=== PATIENT | male | born 1985 | race African-American/Black ===

== ENCOUNTER 2018-06-30 06:48 | Emergency (ER) | payer BC, MEDICAID ==
[~2018-06-30] VITALS: Ht 188 cm; Wt 86.2 kg
[~2018-06-30 06:48] MED LIST: ASPI-1169 PO; CLON0.1T14 PO; LORA-259 PO; OMEP40CA37 PO; OXYC-128 PO; PANCREAZE 10,51 EACH PO
--- NOTE | 2018-06-30 06:52 | NUR ---
PT BIBSELF C/C LOWER ABDOMINAL PAIN X 1 DAY. -N/-V/-D. PT AOX4. RESP EVEN AND UNLABORED. PT ON MONITOR IN BED 9. WILL CONTINUE TO MONITOR.
--- NOTE | 2018-06-30 06:55 | NUR ---
URINE COLLECTED AND SENT TO LAB
--- NOTE | 2018-06-30 07:20 | NUR ---
BLOOD DRAWN AND GIVEN TO LAB
[2018-06-30] MEDS ORDERED: HYDROMORPHONE 1 MG/1 ML DISP.SYRIN ONE (07:21)
[2018-06-30] MEDS ORDERED: ONDANSETRON HCL/PF 4 MG/2 ML VIAL ONE (07:21)
[2018-06-30 07:25] LABS: BASOPHILS # (AUTO) 0.1 /CMM (0.0-0.2); BASOPHILS % (AUTO) 0.6 % (0.0-2.0); EOSINOPHILS % (AUTO) 0.4 % (0.0-6.0); HEMATOCRIT 42 % (39-51); HEMOGLOBIN 14.2 g/dL (13.5-17.5); LYMPHOCYTES # (AUTO) 6.2 /CMM (0.8-4.8); MEAN CORPUSCULAR HGB CONC 34 g/dl (31.0-36.0); MEAN CORPUSCULAR VOLUME 94 fL (80-96); MONOCYTES # (AUTO) 0.9 /CMM (0.1-1.30); MONOCYTES % (AUTO) 7.4 % (2.0-12.0); NEUTROPHILS # (AUTO) 4.4 /CMM (1.8-8.9); NEUTROPHILS % (AUTO) 37.6 % (43.0-81.0); PLATELET COUNT (AUTO) 272 /CMM (150-450); RED BLOOD CELL COUNT(AUTO) 4.48 MIL/uL (4.5-6.0); WHITE BLOOD COUNT (AUTO) 11.6 K/uL (4.3-11.0)
--- NOTE | 2018-06-30 07:26 | NUR ---
REPORT GIVEN TO SUKI MAHAJAN RN FOR KAMINI
--- NOTE | 2018-06-30 07:28 | NUR ---
RECEIVED REPORT FROM MICHELLE MUNIZ, PT IS AAOX4, NOT IN RESPIRATORY DISTRESS, V/S STABLE, KEPT RESTED AT COMFORTABLE, DUE MEDS GIVEN, AWAITING RESULTS.
[2018-06-30] MEDS ORDERED: IV NS 0.9% 1,000 ML BAG IV ONE (07:30)
[2018-06-30] MEDS ORDERED: HYDROMORPHONE INJ 2 MG/ML DISP.SYRIN IV ONE (07:30)
[2018-06-30] MEDS ORDERED: ONDANSETRON HCL/PF 4 MG/2 ML VIAL IVP ONE (07:30)
[2018-06-30 07:34] LABS: CALCIUM, SERUM 8.8 mg/dL (8.5-10.1); CREATININE 1.4 mg/dL (0.6-1.3); POTASSIUM 3.9 mmol/L (3.5-5.1)
[2018-06-30 07:41] LABS: ALBUMIN 4.2 g/dL (3.4-5.0); BILIRUBIN,DIRECT 0.3 mg/dL (0.0-0.2); BILIRUBIN,TOTAL 1.1 mg/dL (0.2-1.0); TOTAL PROTEIN, SERUM 7.9 g/dL (6.4-8.2)
--- NOTE | 2018-06-30 08:15 | NUR ---
WHEELED TO CT SCAN VIA [facility].
--- NOTE | 2018-06-30 08:30 | NUR ---
BACK FROM THE CT SCAN.
--- NOTE | 2018-06-30 09:47 | NUR ---
DR CHACON PAGED AT [phone]
--- NOTE | 2018-06-30 09:55 | NUR ---
PT REPORTED ABDOMINAL PAIN 02/08. DR. NICOLE AWARE.
[2018-06-30] MEDS ORDERED: HYDROMORPHONE 1 MG/1 ML DISP.SYRIN IV ONE (10:00)
[2018-06-30] MEDS ORDERED: HYDROMORPHONE INJ 0.5 MG/0.5 ML SYRINGE ONE (10:03)
--- NOTE | 2018-06-30 11:19 | NUR ---
IV removed. Catheter intact and site benign. Pressure and 4x4 applied to site. No bleeding noted. Patient discharged to home in stable condition. Written and verbal after care instructions given. Patient verbalizes understanding of instruction.
[2018-06-30 11:20] VITALS: BP 130/72
== END 2018-06-30 11:21 | disposition home or self-care (01) ==
LOC: ER 06:49
DX: R10.84 Generalized abdominal pain (principal); F11.20 Opioid dependence, uncomplicated; R11.2 Nausea with vomiting, unspecified; F17.200 Nicotine dependence, unspecified, uncomplicated; Z76.5 Malingerer [conscious simulation]; Z79.82 Long term (current) use of aspirin
CPT/HCPCS: 36415; 80048-TC; 80076-TC; 83690-TC; 85025-TC; J1170; J2405; J7030